=== PATIENT | female | born 1955 | race Caucasian/White ===

== ENCOUNTER 2021-02-03 07:16 | Emergency (ER) | payer OTHER ==
[2021-02-03 07:25] VITALS: BP 144/75; PULSE 84; TEMP 98; BMI 48.4
[2021-02-03] MEDS ORDERED: KETOROLAC TROMETHAMINE 60 MG/2 ML VIAL IM ONE (08:57)
[2021-02-03] MEDS ORDERED: KETOROLAC TROMETHAMINE 30 MG/1 ML VIAL ONE (08:58)
== END 2021-02-03 09:45 | disposition home or self-care (01) ==
LOC: FER 07:16
PROC: 3E0233Z Introduction of Anti-inflammatory into Muscle, Percutaneous Approach (ICD-10-PCS; principal; 2021-02-03)
DX: M54.31 Sciatica, right side (principal)
CPT/HCPCS: 93971-TC; 99284-25